=== PATIENT | female | born 1930 | race Two or more races ===

== ENCOUNTER 2018-09-17 22:13 | Inpatient (IN) | payer OTHER ==
[~2018-09-17] VITALS: Ht 162.6 cm; Wt 49.9 kg
[~2018-09-17 22:13] MED LIST: ARICEPT5 MG; HYZAAR 100-121 UDTAB; NAMENDA10 MG
[2018-09-17] MEDS ORDERED: LEVODOPA25 GM (22:37)
--- NOTE | 2018-09-17 22:37 | NUR ---
SE RECIBE PTE ALERTA Y DESORIENTADA EN TIEMPO, LUGAR Y PERSONA EN AMBULANCIA ACOMPANADA POR FAMILIARES QUIENES REFIEREN PTE ESTA "TEN" Y CON MOVIMIENTOS INVOLUNTARIOS HACE 2 OCONNOR. PTE CON SONDA URINARIA DE HOGAR PATENTE CON IRRIGACIONES EN SONDA URINARIA. PTE CON ULCERA SACRAL CON BENDAJE DE HOGAR LIMPIO Y SECO. SE LEROY S/V LOS CUALES SE PRESENTAN A DRA. SCHULZ QUIEN ORDENA UBICAR PTE EN AREA DE OBSERVACION ANGELA #6.
--- NOTE | 2018-09-18 00:27 | NUR ---
PACIENTE ALERTA,ACOMPANADA DE FAMILIAR SON ORIENTADAS POR Patricia ARABELLA RN DE TRATAMIENTO LISA ORDEN MEDICA,EL CUAL LE REALIZA CON MEDIDAS ASEPTICAS CORRES- PONDIENTES.EN ESPERA DE CT YA NOTIFICADO.
--- NOTE | 2018-09-18 08:08 | NUR ---
PTE ALERTA Y TRANQUILA,EN COMPANIA DE FAMILIAR,EN ANGELA CON BARANDAS ELEVADAS,AREA DE VENOPUNCION PATENTE Y SANDRA DE EDEMA CON FLUIDOS DE MANTENIMIENTO BAJANDO SIN DIFICULTAD,PTE CON WRIGHT CON IRRIGACION CONTINUA TRAIDO DE FUERA,PRESENTA SEDIMENTACION.SE HOSEA BAJO OBSERVACION.
--- NOTE | 2018-09-18 15:27 | NUR ---
SE RECIBE PTE STUPOROSA QUE REACIONA A ESTIMULOS DE DOLOR. SE RECIBE PTE EN CAMA CON BARANDAS ELEVADAS, SE RECIBE PTE CANALIZADA AREA SANDRA DE EDEMA Y DE ENROJECIMIENTO. SE RECIBE PTE CON FOLYE SON INRRIGACION CONTINUA, SE OBSERVA ORINA SEDIMENTADA. PTE SE MANTIENE BAJO OBSERVACION POR CAMBIOS.
[2018-09-30] MEDS ORDERED: SINEMET CR 25-1 EACH PO (09:52)
[2018-09-30] MEDS ORDERED: LOSARTAN POTASS50 MG PO (09:52)
[2018-09-30] MEDS ORDERED: ARICEPT10 MG PO (09:52)
== END 2018-09-30 19:04 | disposition home health service (06) | DRG 637 ==
LOC: ER 22:13 → SURH 09-18 17:33
PROVIDERS: ADMIT Internal Medicine
PROC: 0T9B70Z Drainage of Bladder with Drainage Device, Via Natural or Artificial Opening (ICD-10-PCS; 2018-09-18)
PROC: 8E0ZXY6 Isolation (ICD-10-PCS; 2018-09-18)
PROC: B246ZZZ Ultrasonography of Right and Left Heart (ICD-10-PCS; 2018-09-18)
PROC: CP2 Nuclear Medicine, Musculoskeletal System, Tomographic (Tomo) Nuclear Medicine Imaging (ICD-10-PCS; principal; 2018-09-19)
PROC: CP151ZZ Planar Nuclear Medicine Imaging of Spine using Technetium 99m (Tc-99m) (ICD-10-PCS; 2018-09-21)
PROC: 02HV33Z Insertion of Infusion Device into Superior Vena Cava, Percutaneous Approach (ICD-10-PCS; 2018-09-29)
DX: E11.622 Type 2 diabetes mellitus with other skin ulcer (principal); L89.153 Pressure ulcer of sacral region, stage 3; N39.0 Urinary tract infection, site not specified; M46.28 Osteomyelitis of vertebra, sacral and sacrococcygeal region; E86.0 Dehydration; R63.0 Anorexia; G20 Parkinson's disease; Z74.01 Bed confinement status; Z85.850 Personal history of malignant neoplasm of thyroid; A49.02 Methicillin resistant Staphylococcus aureus infection, unspecified site; E16.1 Other hypoglycemia; Z79.4 Long term (current) use of insulin; L98.423 Non-pressure chronic ulcer of back with necrosis of muscle

== ENCOUNTER 2018-10-11 18:30 | Inpatient (IN) | payer OTHER ==
[~2018-10-11] VITALS: Ht 61 cm; Wt 5.0 kg
[~2018-10-11 18:30] MED LIST changes: +ARICEPT10 MG PO; +LEVODOPA25 GM; +LOSARTAN POTASS50 MG PO; +SINEMET CR 25-1 EACH PO
--- NOTE | 2018-10-11 18:35 | NUR ---
SE RECIBE PTE EN AMBULANCIA DESORIENTADA EN TIEMPO, LUGAR Y PERSONA. FAMILIAR REFIERE DESORIENTACION HACE MAS DE 10 OCONNOR Y DESVIACION FACIAL HOY. SE LEROY S/V LOS CUALES SE PRESENTAN A DR. TALBERT QUIEN ORDENA UBICAR PTE EN AREA DE OBSERVACION [place] #12.
--- NOTE | 2018-10-11 19:17 | NUR ---
SE ORIENTA PTE Y FAMILIAR SOBRE TRATAMIENTO. SE LEROY MUESTRAS DE TOSHIA POR ADILIA FOLEY QUIEN ADMINISTRA MEDICAMENTOS ORDENADOS. SE NOTIFICA A PERSONAL DE CT PARA ESTUDIO PENDIENTE. PTE PENDIENTE A RE-EVALUAICON POR DR. TALBERT.
--- NOTE | 2018-10-11 23:18 | NUR ---
SE RECIBE PACIENTE ALERTA Y ORIENTADA EN CAMA CON BARRANDAS ELEVADAS POR CORTES SEGURIDAD, EN COMPANIA DE FAMILAIR. PACIENTE CON PICCLINE EN BRAZO DERECHO SANDRA DE EDEMA Y ERRITEMA CON GASAS LIMPIAS. CON .9 NSS BAJANDO A 150 ML/HR. PACIENTE CON SONDA URINARIA DRENANDO ORINA AMARILLO JAY. SE HOSEA A PACIENTE EN CAMA BAJO OBSERVACION POR CAMBIOS EN CORTES CONDICION.
--- NOTE | 2018-10-12 02:06 | NUR ---
PACIENTE ALERTA EN COMPANIA DE FAMILIAR, SE SUCCIONA A PACIENTE Y SE OBSERVAN SECRECIONES AMARILLENTAS. SE COLCA A PACIENTE EN K8 SE CONECTA A MONITOR CARDIACO Y OXIMETRIA DE PULSO. SE NOTIFICA A TERAPIA RESPIRATORIA ABG Y TERAPIAS DE PACIENTE. SE ADRIANO MUESTRA DE TROPOININA. JUAN PEREZ LE REALIZA EKG Y SE P[RESENTA A DR. ALMARAZ. SE HOSEA A PACIENTE EN CAMA BAJO OBSERVACION POR CAMBIOS EN CORTES CONDICION.
--- NOTE | 2018-10-12 07:30 | NUR ---
SE RECIBE PTE EN CAMA CON BARANDAS ELEVADA Y TIMBRE ACCESIBLE PTE EN COMPANIA DE CORTES FAMILIAR CONECTADA A MONITOR CARDIACO Y OXYMETRIA DE PULSO, PTE DESORIENTADA SE OBSERVA PICC LINE PATENTE Y SANDRA DE EDEMA, SE OBSERVA RESPIRANDO CON ASISTENCIA DE CANULA A 3 LIT[address] FOLYE DRANDO ORINA DE COLOR AMARILLO INTENSO, ULCERA SACRAL PTE SE MANTIENE EN OBSERVACION EN ESPERA DE DR FOLEY.
--- NOTE | 2018-10-12 07:30 | NUR ---
PTE LETARGICA NO RESPONDE AL ESTIMULO DE DOLOR
--- NOTE | 2018-10-12 08:45 | NUR ---
SE NOTIFICA AL DR PITT SOBRE EL ESTADO DEL PTE Y S/V
== END 2018-10-14 23:02 | disposition expired | DRG 592 ==
LOC: ER 18:30 → ICU-2 10-12 13:02 → SEC-K 10-12 13:02 → MEDJ 10-12 13:27 → ICU-2 10-12 13:58
PROVIDERS: ADMIT Internal Medicine
PROC: 8E0ZXY6 Isolation (ICD-10-PCS; principal; 2018-10-12)
PROC: 4A033R1 Measurement of Arterial Saturation, Peripheral, Percutaneous Approach (ICD-10-PCS; 2018-10-12)
PROC: 3E0F7GC Introduction of Other Therapeutic Substance into Respiratory Tract, Via Natural or Artificial Opening (ICD-10-PCS; 2018-10-12)
DX: L89.154 Pressure ulcer of sacral region, stage 4 (principal); J96.00 Acute respiratory failure, unspecified whether with hypoxia or hypercapnia; R65.21 Severe sepsis with septic shock; J69.0 Pneumonitis due to inhalation of food and vomit; F02.81 Dementia in other diseases classified elsewhere, unspecified severity, with behavioral disturbance; M46.28 Osteomyelitis of vertebra, sacral and sacrococcygeal region; B37.49 Other urogenital candidiasis; Z74.01 Bed confinement status; Z66 Do not resuscitate; G30.8 Other Alzheimer's disease; B96.5 Pseudomonas (aeruginosa) (mallei) (pseudomallei) as the cause of diseases classified elsewhere; B96.89 Other specified bacterial agents as the cause of diseases classified elsewhere